=== PATIENT | female | born 1955 | race Two or more races ===

== ENCOUNTER 2016-10-31 15:13 | Inpatient (IN) | payer MEDICAID ==
[~2016-10-31] VITALS: Ht 160 cm; Wt 68.6 kg
[2016-10-31 17:08] LABS: Basophils # (auto) 0 uL; Basophils % (auto) 0.3 % (0.0-2.0); Eosinophils # (auto) 0.1 uL; Eosinophils % (auto) 0.8 % (0.0-7.0); Hematocrit 30.5 % (36.0-46.0); Hemoglobin 9.8 g/dL (12.2-16.2); Lymphocytes % (auto) 12.8 % (10.0-50.0); Mean Corpuscular Hemoglobin 29.2 pg (28.0-32.0); Mean Corpuscular Hgb Conc. 32.2 g/dL (32.0-36.0); Mean Corpuscular Volume 90.7 fL (80.0-100.0); Mean Platelet Volume 9.7 fL (7.4-10.4); Monocytes # (auto) 0.5 uL; Monocytes % (auto) 5.7 % (0.0-12.0); Neutrophils # (auto) 6.6 uL; Neutrophils % (auto) 80.4 % (37.0-80.0); Platelet Count (auto) 309 10^3/uL (140-450); Red Cell Distribution Width 13.9 % (11.6-16.0); White Blood Cell 8.2 10^3/uL (4.4-10.8)
[2016-10-31 17:38] LABS: Albumin 2.3 g/dL (3.4-5.0); BUN/Creatinine Ratio 24.8; Calcium 8.3 mg/dL (8.5-10.1); Potassium 4.1 mmol/L (3.5-5.1)
[2016-10-31 17:41] LABS: Bilirubin, Total 0.2 mg/dL (0.2-1.0); Total Protein 6.8 g/dL (6.4-8.2)
[2016-10-31] MEDS ORDERED: SODIUM CHLORIDE 0.9% 1,000 ML IVB ONE (19:25)
[2016-10-31] MEDS ORDERED: PROCHLORPERAZINE EDISYLATE 5 MG/ML 2ML VIAL IV ONE (19:30)
[2016-10-31 20:16] LABS: Urine Bilirubin Negative (Negative); Urine Blood Negative /uL (Negative); Urine Color Yellow (Yellow); Urine Glucose Normal (Normal); Urine Ketone Negative (Negative); Urine Nitrite Negative (Negative); Urine RBC 12 /hpf (0 - 4); Urine Squamous Epithelial Cell FEW /hpf (<5); Urine Urobilinogen Normal (Negative); Urine pH 5.5 (5.0-8.0)
[2016-10-31] MEDS ORDERED: SODIUM CHLORIDE 0.9% 1,000 ML IV SCH (21:52)
[2016-10-31] MEDS ORDERED: TEMAZEPAM 15 MG CAP PO PRN (22:00)
[2016-10-31] MEDS ORDERED: cefTRIAXone 1GM/50ML D5W 50 ML IV ONE (22:00)
[2016-10-31] MEDS ORDERED: ACETAMINOPHEN 325 MG TAB PO PRN (22:00)
[2016-10-31] MEDS ORDERED: MORPHINE SULF INJ 2 MG/ML SYRINGE 1ML IV PRN (22:00)
[2016-10-31] MEDS ORDERED: NITROGLYCERIN 0.4 MG SL TAB SL PRN (22:00)
[2016-10-31] MEDS ORDERED: ONDANSETRON HCL 4 MG/2 ML VIAL IV PRN (22:00)
[2016-10-31] MEDS ORDERED: HYDROcodone-ACET 5/325MG TAB PO PRN (22:00)
[2016-10-31] MEDS ORDERED: PANTOPRAZOLE SODIUM 40 MG/10 ML VIAL IV ONE (22:00)
[2016-10-31] MEDS ORDERED: DEXTROSE (50%) 50ML SYRG IV PRN (22:00)
[2016-10-31] MEDS: ENOXAPARIN SOD 30 MG/0.3 ML SYRINGE SC SCH (23:15)
[2016-10-31 23:30] VITALS: BP 130/58
[2016-10-31] MEDS: ACCU-CHEK COMFORT CURVE STRIP VI SCH (23:43)
[2016-10-31] MEDS: InsuLIN REG 1unit/0.01ml Soln (100units/ml) SC SCH (23:43)
[2016-11-01] MEDS ORDERED: ONDA8TAB6 PO (00:18)
[2016-11-01] MEDS ORDERED: SITA100T7 PO (00:18)
[2016-11-01] MEDS ORDERED: METF-316 PO (00:18)
[2016-11-01] MEDS ORDERED: SULF400T11 PO (00:18)
[2016-11-01 05:04] VITALS: BP 111/61
[2016-11-01] MEDS: InsuLIN REG 1unit/0.01ml Soln (100units/ml) SC SCH ×4 (05:48→21:36)
[2016-11-01] MEDS: ACCU-CHEK COMFORT CURVE STRIP VI SCH ×3 (05:48→17:26)
[2016-11-01 06:35] LABS: Basophils # (auto) 0 uL; Basophils % (auto) 0.3 % (0.0-2.0); Eosinophils # (auto) 0.1 uL; Eosinophils % (auto) 1.1 % (0.0-7.0); Hematocrit 28.7 % (36.0-46.0); Lymphocytes # (auto) 1.5 uL; Mean Corpuscular Hemoglobin 28.6 pg (28.0-32.0); Mean Corpuscular Hgb Conc. 31.3 g/dL (32.0-36.0); Mean Corpuscular Volume 91.4 fL (80.0-100.0); Mean Platelet Volume 9.4 fL (7.4-10.4); Monocytes # (auto) 0.7 uL; Neutrophils # (auto) 6.5 uL; Neutrophils % (auto) 73.6 % (37.0-80.0); Platelet Count (auto) 299 10^3/uL (140-450); White Blood Cell 8.9 10^3/uL (4.4-10.8)
[2016-11-01 06:47] LABS: Albumin 2.2 g/dL (3.4-5.0); BUN/Creatinine Ratio 25.4; Bilirubin, Total 0.2 mg/dL (0.2-1.0); Potassium 4.2 mmol/L (3.5-5.1); Total Protein 6.2 g/dL (6.4-8.2)
[2016-11-01] MEDS: cefTRIAXone 1GM/50ML D5W 50 ML IV SCH (09:13)
[2016-11-01] MEDS: ASPirin 81 mg TAB PO SCH (09:13)
[2016-11-01] MEDS: PANTOPRAZOLE SODIUM 40 MG/10 ML VIAL IV SCH (09:13)
[2016-11-01 09:24] VITALS: BP 115/65
[2016-11-01 13:07] VITALS: BP 130/70
[2016-11-01] MEDS ORDERED: SODIUM CHLORIDE 0.9% 1,000 ML IVB ONE (14:30)
[2016-11-01] MEDS: SODIUM CHLORIDE 0.9% 1,000 ML IV SCH (14:44)
[2016-11-01 16:53] VITALS: BP 135/72
[2016-11-01 17:16] LABS: Temperature: 22.4 C (20.0-25.0)
[2016-11-01] MEDS: ENOXAPARIN SOD 30 MG/0.3 ML SYRINGE SC SCH (19:42)
[2016-11-01 21:44] VITALS: BP 139/68
[2016-11-01] MEDS ORDERED: SODIUM CHLORIDE 0.9% 1,000 ML IV SCH (21:52)
[2016-11-02] MEDS: SODIUM CHLORIDE 0.9% 1,000 ML IV SCH (03:50)
[2016-11-02 05:31] VITALS: BP 126/72
[2016-11-02] MEDS: InsuLIN REG 1unit/0.01ml Soln (100units/ml) SC SCH ×2 (06:12→12:19)
[2016-11-02] MEDS: ACCU-CHEK COMFORT CURVE STRIP VI SCH ×3 (06:25→12:19)
[2016-11-02 06:33] LABS: Basophils # (auto) 0 uL; Basophils % (auto) 0.3 % (0.0-2.0); Eosinophils # (auto) 0.1 uL; Eosinophils % (auto) 1.5 % (0.0-7.0); Hematocrit 27.3 % (36.0-46.0); Hemoglobin 8.8 g/dL (12.2-16.2); Lymphocytes # (auto) 1.7 uL; Lymphocytes % (auto) 18.7 % (10.0-50.0); Mean Corpuscular Hemoglobin 29.2 pg (28.0-32.0); Mean Corpuscular Hgb Conc. 32.1 g/dL (32.0-36.0); Monocytes # (auto) 0.8 uL; Monocytes % (auto) 9.3 % (0.0-12.0); Neutrophils # (auto) 6.2 uL; Neutrophils % (auto) 70.2 % (37.0-80.0); Platelet Count (auto) 367 10^3/uL (140-450); Red Cell Distribution Width 14.3 % (11.6-16.0); White Blood Cell 8.8 10^3/uL (4.4-10.8)
[2016-11-02 08:00] VITALS: BP 136/73
[2016-11-02 08:32] LABS: BUN/Creatinine Ratio 17.8; Calcium 8.3 mg/dL (8.5-10.1); Magnesium 2.5 mg/dL (1.6-2.6); Potassium 4.4 mmol/L (3.5-5.1)
[2016-11-02] MEDS: cefTRIAXone 1GM/50ML D5W 50 ML IV SCH (08:55)
[2016-11-02 09:00] VITALS: BP 136/73
[2016-11-02] MEDS: PANTOPRAZOLE SODIUM 40 MG/10 ML VIAL IV SCH (09:36)
[2016-11-02] MEDS: ASPirin 81 mg TAB PO SCH (09:36)
[2016-11-02 13:00] VITALS: BP 132/69
[2016-11-02] MEDS ORDERED: CIPR-217 PO (13:01)
[2016-11-02 14:19] VITALS: BP 136/73
[2016-11-03] MEDS ORDERED: ENOXAPARIN SOD 40 MG/0.4 ML SYRINGE SC SCH (10:00)
== END 2016-11-02 15:15 | disposition home or self-care (01) | DRG 203 ==
LOC: ER 15:28 → TELE 15:29 → TELE-WESTW 23:16
PROVIDERS: ADMIT Nurse Practitioner; ATTEND Internal Medicine
DX: R07.89 Other chest pain (principal); N17.0 Acute kidney failure with tubular necrosis; E43 Unspecified severe protein-calorie malnutrition; E11.21 Type 2 diabetes mellitus with diabetic nephropathy; E86.0 Dehydration; N39.0 Urinary tract infection, site not specified; E11.65 Type 2 diabetes mellitus with hyperglycemia; D64.9 Anemia, unspecified; D25.9 Leiomyoma of uterus, unspecified; D63.8 Anemia in other chronic diseases classified elsewhere; G43.A0 Cyclical vomiting, in migraine, not intractable; E11.319 Type 2 diabetes mellitus with unspecified diabetic retinopathy without macular edema; N18.9 Chronic kidney disease, unspecified; Z83.3 Family history of diabetes mellitus; Z68.26 Body mass index [BMI] 26.0-26.9, adult; E11.36 Type 2 diabetes mellitus with diabetic cataract; Z98.42 Cataract extraction status, left eye; Z98.41 Cataract extraction status, right eye
CPT/HCPCS: 36415; 71010; 74176; 76775; 80048; 80053; 81001; 82043; 82607; 82746; 82962; 83036; 83540; 83550; 83735; 84484; 85025; 86803; 87086; 87340; 93005; 93306; 94761; 96361; 96374; 96375; C9113; J0696; J1815

== ENCOUNTER 2017-06-07 09:43 | Inpatient (IN) | payer MEDICAID ==
[~2017-06-07] VITALS: Ht 160 cm; Wt 71.4 kg
[~2017-06-07 09:43] MED LIST: CIPR-217 PO; METF-372 PO; ONDA8TAB6 PO; SITA100T7 PO
[2017-06-07 10:36] LABS: Urine Bilirubin Negative (Negative); Urine Blood Negative /uL (Negative); Urine Color Yellow (Yellow); Urine Glucose Normal (Normal); Urine Hyaline Cast FEW /lpf (0 - 2); Urine Ketone Negative (Negative); Urine Mucus FEW (None Seen); Urine Nitrite Negative (Negative); Urine RBC 1 /hpf (0 - 4); Urine Urobilinogen Normal (Negative)
[2017-06-07 10:36] LABS: Basophils # (auto) 0.1 uL; Basophils % (auto) 1.2 % (0.0-2.0); Eosinophils # (auto) 0.2 uL; Eosinophils % (auto) 2.7 % (0.0-7.0); Hematocrit 31.1 % (36.0-46.0); Hemoglobin 10.5 g/dL (12.2-16.2); Lymphocytes # (auto) 1.5 uL; Lymphocytes % (auto) 22.6 % (10.0-50.0); Mean Corpuscular Hemoglobin 31.2 pg (28.0-32.0); Mean Corpuscular Hgb Conc. 33.8 g/dL (32.0-36.0); Mean Corpuscular Volume 92.3 fL (80.0-100.0); Mean Platelet Volume 9.7 fL (7.4-10.4); Monocytes # (auto) 0.4 uL; Monocytes % (auto) 6.9 % (0.0-12.0); Neutrophils # (auto) 4.4 uL; Neutrophils % (auto) 66.6 % (37.0-80.0); Platelet Count (auto) 211 10^3/uL (140-450); Red Cell Distribution Width 13.8 % (11.6-16.0); White Blood Cell 6.5 10^3/uL (4.4-10.8)
[2017-06-07 11:22] LABS: Albumin 3.5 g/dL (3.4-5.0); Bilirubin, Total 0.2 mg/dL (0.2-1.0); Calcium 9.2 mg/dL (8.5-10.1); Potassium 5.1 mmol/L (3.5-5.1); Total Protein 7.4 g/dL (6.4-8.2)
[2017-06-07] MEDS ORDERED: SODIUM CHLORIDE 0.9% 1,000 ML IV ONE (16:43)
[2017-06-07] MEDS ORDERED: LABETALOL HCL 5 MG/ML ML 20ML VIAL IV ONE (18:00)
[2017-06-07] MEDS ORDERED: NITROGLYCERIN 0.4 MG SL TAB SL PRN (18:15)
[2017-06-07] MEDS ORDERED: ACETAMINOPHEN 500 MG TAB PO PRN (18:15)
[2017-06-07] MEDS ORDERED: MORPHINE SULF INJ 2 MG/ML SYRINGE 1ML IV PRN ×2 (18:15)
[2017-06-07] MEDS ORDERED: PROMETHAZINE HCL 25 MG/ML 1ML IV PRN (18:15)
[2017-06-07] MEDS ORDERED: TEMAZEPAM 15 MG CAP PO PRN (18:15)
[2017-06-07] MEDS ORDERED: LORazepam 0.5 MG TAB PO PRN (18:15)
[2017-06-07] MEDS ORDERED: HYDROcodone-ACET 5/325MG TAB PO PRN (18:15)
[2017-06-07] MEDS ORDERED: DEXTROSE (50%) 50ML SYRG IV PRN (18:15)
[2017-06-07] MEDS ORDERED: PANTOPRAZOLE 40 MG TAB PO ONE (19:15)
[2017-06-07] MEDS ORDERED: ASPirin 81 mg TAB PO ONE (19:15)
[2017-06-07 19:20] LABS: Temperature: 23.5 C (20.0-25.0)
[2017-06-07 19:30] VITALS: BP 173/77
[2017-06-07 19:35] VITALS: BP 152/82
[2017-06-07] MEDS ORDERED: LABETALOL HCL 5 MG/ML ML 20ML VIAL IV PRN ×2 (19:45)
[2017-06-07] MEDS ORDERED: LEVO25TA6 PO (20:30)
[2017-06-07] MEDS ORDERED: CLON0.2D6 PO (20:30)
[2017-06-07] MEDS ORDERED: FER325T PO (20:30)
[2017-06-07] MEDS ORDERED: ASPI-231 PO (20:30)
[2017-06-07] MEDS ORDERED: SODI15SU PO (20:30)
[2017-06-07] MEDS: SODIUM CHLOR 0.9% PF (SALINE LOCK) 10ML VIAL IV SCH (21:19)
[2017-06-07] MEDS: ISOSORBIDE DINITRATE 10 MG TAB PO SCH (21:19)
[2017-06-07] MEDS: ATORVASTATIN 20 MG TAB PO SCH (21:20)
[2017-06-07] MEDS: ACCU-CHEK COMFORT CURVE STRIP VI SCH (21:29)
[2017-06-07] MEDS: InsuLIN REG 1unit/0.01ml Soln (100units/ml) SC SCH (21:30)
[2017-06-07 21:45] VITALS: BP 152/85
[2017-06-07] MEDS ORDERED: ENALAPRIL MALEATE 2.5 MG TAB PO SCH (22:00)
[2017-06-08 04:49] VITALS: BP 144/70
[2017-06-08] MEDS: ISOSORBIDE DINITRATE 10 MG TAB PO SCH (06:18)
[2017-06-08] MEDS: ACCU-CHEK COMFORT CURVE STRIP VI SCH ×4 (06:18→22:14)
[2017-06-08] MEDS: SODIUM CHLOR 0.9% PF (SALINE LOCK) 10ML VIAL IV SCH ×2 (06:19→13:57)
[2017-06-08] MEDS: InsuLIN REG 1unit/0.01ml Soln (100units/ml) SC SCH ×3 (06:19→17:00)
[2017-06-08 06:20] LABS: Basophils # (auto) 0.1 uL; Eosinophils # (auto) 0.2 uL; Eosinophils % (auto) 2.8 % (0.0-7.0); Hematocrit 28.3 % (36.0-46.0); Hemoglobin 9.6 g/dL (12.2-16.2); Lymphocytes # (auto) 1.9 uL; Lymphocytes % (auto) 31.6 % (10.0-50.0); Mean Corpuscular Hemoglobin 31.2 pg (28.0-32.0); Mean Corpuscular Hgb Conc. 33.9 g/dL (32.0-36.0); Mean Corpuscular Volume 92.2 fL (80.0-100.0); Mean Platelet Volume 9.7 fL (6.9-10.8); Monocytes # (auto) 0.5 uL; Monocytes % (auto) 7.7 % (0.0-12.0); Neutrophils # (auto) 3.4 uL; Neutrophils % (auto) 56.9 % (37.0-80.0); Nucleated Red Blood Cells % 0.1 %; Platelet Count (auto) 190 10^3/uL (140-450); Red Cell Distribution Width 13.7 % (11.8-14.3)
[2017-06-08 06:36] LABS: INR 0.98 (0.9-1.15); Partial Thromboplastin Time 29.8 sec (22.64-33.71); Prothrombin Time 10.7 sec (9.37-12.3)
[2017-06-08 06:58] LABS: Albumin 3.2 g/dL (3.4-5.0); Alkaline Phosphatase 79 U/L (45-117); Anion Gap 8 (5-15); Aspartate Aminotransferase 13 U/L (15-37); BUN/Creatinine Ratio 20.3; Bilirubin, Total 0.4 mg/dL (0.2-1.0); Blood Urea Nitrogen 28 mg/dL (7-18); Calcium 8.3 mg/dL (8.5-10.1); Carbon Dioxide 24 mmol/L (21-32); Chloride 110 mmol/L (98-107); Cholesterol 156 mg/dL (< 200); GFR African American 50 mL/min; GFR Non-African American 41 mL/min; Glucose 184 mg/dL (74-106); HDL Cholesterol 56 mg/dL (40-59); LDL Cholesterol 97 mg/dL (< 100); Potassium 4.6 mmol/L (3.5-5.1); Sodium 142 mmol/L (136-145); Total Protein 6.8 g/dL (6.4-8.2); Triglycerides 83 mg/dL (< 150)
[2017-06-08 08:45] VITALS: BP 142/63
[2017-06-08] MEDS ORDERED: ENALAPRIL MALEATE 10 MG TAB PO SCH (10:00)
[2017-06-08] MEDS ORDERED: amLODIPine BESYLATE 5 MG TAB PO ONE (10:00)
[2017-06-08] MEDS: amLODIPine BESYLATE 5 MG TAB PO SCH (10:00)
[2017-06-08] MEDS: PANTOPRAZOLE 40 MG TAB PO SCH (10:17)
[2017-06-08] MEDS: ASPirin 81 mg TAB PO SCH (10:17)
[2017-06-08 16:55] VITALS: BP 154/78
[2017-06-08 20:00] VITALS: BP 146/70
[2017-06-08 22:00] VITALS: BP 146/70
[2017-06-09] MEDS: ATORVASTATIN 20 MG TAB PO SCH (01:06)
[2017-06-09] MEDS: SODIUM CHLOR 0.9% PF (SALINE LOCK) 10ML VIAL IV SCH ×2 (01:10→06:16)
[2017-06-09] MEDS: InsuLIN REG 1unit/0.01ml Soln (100units/ml) SC SCH ×3 (01:11→11:30)
[2017-06-09 05:00] VITALS: BP 126/70
[2017-06-09] MEDS: ACCU-CHEK COMFORT CURVE STRIP VI SCH ×2 (06:17→11:30)
[2017-06-09 06:49] LABS: Calcium 8.3 mg/dL (8.5-10.1); Potassium 4.3 mmol/L (3.5-5.1)
[2017-06-09 09:00] VITALS: BP 130/76
[2017-06-09] MEDS: ASPirin 81 mg TAB PO SCH (10:03)
[2017-06-09] MEDS: PANTOPRAZOLE 40 MG TAB PO SCH (10:03)
[2017-06-09] MEDS: amLODIPine BESYLATE 5 MG TAB PO SCH (10:05)
[2017-06-09 10:49] VITALS: BP 150/76
== END 2017-06-09 12:40 | disposition home or self-care (01) | DRG 470 ==
LOC: ER 09:43 → TELE 09:44 → TELE-CENTR 19:28
PROVIDERS: ADMIT Internal Medicine; ATTEND Internal Medicine
DX: I12.9 Hypertensive chronic kidney disease with stage 1 through stage 4 chronic kidney disease, or unspecified chronic kidney disease (principal); I67.4 Hypertensive encephalopathy; E11.21 Type 2 diabetes mellitus with diabetic nephropathy; E11.65 Type 2 diabetes mellitus with hyperglycemia; E87.5 Hyperkalemia; N18.3 Chronic kidney disease, stage 3 (moderate); E03.9 Hypothyroidism, unspecified; D63.8 Anemia in other chronic diseases classified elsewhere; E11.22 Type 2 diabetes mellitus with diabetic chronic kidney disease; Z83.3 Family history of diabetes mellitus; Z82.49 Family history of ischemic heart disease and other diseases of the circulatory system; Z87.440 Personal history of urinary (tract) infections; Z79.899 Other long term (current) drug therapy
CPT/HCPCS: 36415; 70450; 71020; 80048; 80053; 80061; 81001; 82550; 82607; 82746; 82962; 83036; 83735; 84443; 84484; 85025; 85379; 85610; 85652; 85730; 86141; 87081; 93005; 93306; 93886; 94761; 96361; 96374; J1815

== ENCOUNTER → 2024-09-27 | Outpatient (CLI) | payer OTHER, MEDICAID ==
[~2024-09-27] MED LIST changes: +ASPI1TAB20 PO; -CIPR-217 PO; +CLON0.2D6 PO; +FER325T PO; +LEVO25TA6 PO; -METF-372 PO; -ONDA8TAB6 PO; +SODI15SU PO
[2024-09-27 09:49] LABS: Urine Blood Negative /uL (Negative); Urine Clarity Turbid (Clear); Urine Color Colorless (Yellow); Urine Protein, UAD 3+ (Negative); Urine Specific Gravity 1.009 (1.001-1.035); Urine Urobilinogen Normal (Negative); Urine pH 8.5 (5.0-9.0)
[2024-09-27 11:49] LABS: Alanine Aminotransferase 25 U/L (7-40); Alkaline Phosphatase 114 U/L (46-116); Anion Gap 7 (5-15); Aspartate Aminotransferase 21 U/L (13-40); BUN/Creatinine Ratio 5.2 (10.0-20.0); Triglycerides 73 mg/dL (< 150)
[2024-09-27 11:50] LABS: Total Protein 7.5 g/dL (5.7-8.2)
[2024-09-27 12:00] LABS: Albumin 4.8 g/dL (3.2-4.8); Bilirubin, Total 0.2 mg/dL (0.2-1.0); Blood Urea Nitrogen 35 mg/dL (9-23); Calcium 10.5 mg/dL (8.7-10.4); Carbon Dioxide 31 mmol/L (20-31); Chloride 97 mmol/L (98-107); Cholesterol 210 mg/dL (< 200); Glucose 144 mg/dL (74-106); HDL Cholesterol 82 mg/dL (40-59); LDL Cholesterol 111 mg/dL (< 100); Potassium 5.5 mmol/L (3.5-5.1); Sodium 135 mmol/L (136-145)
== END | disposition home or self-care (01) ==
LOC: LAB 08:50
PROVIDERS: ATTEND Internal Medicine
DX: E11.22 Type 2 diabetes mellitus with diabetic chronic kidney disease (principal); N18.9 Chronic kidney disease, unspecified; Z79.899 Other long term (current) drug therapy
CPT/HCPCS: 80053; 80061; 81003; 82043; 82274; 82306; 82607; 84443

== ENCOUNTER → 2024-12-13 | Outpatient (CLI) | payer OTHER, MEDICAID ==
[~2024-12-13] MED LIST changes: +ALBUTEROL SULF 2.5 MG/0.5ML(0.5%) NEB SOLN ONE
--- NOTE | 2025-01-07 10:42 | DVHNC2 ---
Procedure - December 13, 2024 6 minute walk test interpretation No significant hypoxic events. Completed 6 minutes of ambulation. Expected heart rate achieved. Moderate reduction in distance walk. YOBANY QUINN RESIDENT Jan 07, 2025 10:42
--- NOTE | 2025-01-07 10:44 | DVHNC2 ---
Procedure - Pulmonary function test interpretation December 13, 2024 Moderate obstructive ventilatory defect. No significant bronchodilator response. FVC improved by 110 mL. Total lung capacity is reduced, 59% of predicted (2.71 L). Moderate reduction in diffusion capacity, 52% of predicted; not corrected for patient's hemoglobin. YOBANY QUINN RESIDENT Jan 07, 2025 10:44
== END | disposition home or self-care (01) ==
LOC: RT 09:28
PROVIDERS: ATTEND Internal Medicine Pulmonary Disease
DX: R06.00 Dyspnea, unspecified (principal); R05.3 Chronic cough
CPT/HCPCS: 94060; 94618; 94727; 94729

== ENCOUNTER → 2025-01-17 | Outpatient (CLI) | payer OTHER, MEDICAID ==
[~2025-01-17] MED LIST changes: -ALBUTEROL SULF 2.5 MG/0.5ML(0.5%) NEB SOLN ONE
[2025-01-17 11:46] LABS: Basophils # (auto) 0 10 ^3/uL (0-0.2); Basophils % (auto) 0.4 % (0.0-2.0); Eosinophils # (auto) 0.2 10 ^3/uL (0-0.8); Eosinophils % (auto) 2.9 % (0.0-7.0); Hematocrit 40.2 % (36.0-46.0); Hemoglobin 13.3 g/dL (12.2-16.2); Lymphocytes # (auto) 1.1 10 ^3/uL (0.4-5.4); Lymphocytes % (auto) 16.3 % (10.0-50.0); Mean Corpuscular Hgb Conc. 33.1 g/dL (32.0-36.0); Mean Corpuscular Volume 96.9 fL (80.0-100.0); Monocytes # (auto) 0.6 10 ^3/uL (0-1.3); Monocytes % (auto) 8.5 % (0.0-12.0); Neutrophils # (auto) 4.7 10 ^3/uL (1.6-8.6); Neutrophils % (auto) 71.9 % (37.0-80.0); Platelet Count (auto) 162 10^3/uL (140-450); Red Blood Cells 4.15 10^6/uL (4.0-5.20); Red Cell Distribution Width 15.6 % (11.8-14.3); White Blood Cell 6.5 10^3/uL (4.4-10.8)
[2025-01-17 12:01] LABS: Alanine Aminotransferase 25 U/L (7-40); Alkaline Phosphatase 108 U/L (46-116); Anion Gap 12 (5-15); BUN/Creatinine Ratio 8.5 (10.0-20.0); Carbon Dioxide 30 mmol/L (20-31); LDL Cholesterol 63 mg/dL (< 100); Potassium 4.7 mmol/L (3.5-5.1); Sodium 138 mmol/L (136-145); Total Protein 8.2 g/dL (5.7-8.2); Triglycerides 80 mg/dL (< 150)
[2025-01-17 12:02] LABS: Albumin 5.3 g/dL (3.2-4.8); Aspartate Aminotransferase 11 U/L (13-40); Bilirubin, Total 0.4 mg/dL (0.2-1.0); Blood Urea Nitrogen 52 mg/dL (9-23); Calcium 10.6 mg/dL (8.7-10.4); Chloride 96 mmol/L (98-107); Cholesterol 149 mg/dL (< 200); Glucose 136 mg/dL (74-106); HDL Cholesterol 63 mg/dL (40-59)
== END | disposition home or self-care (01) ==
LOC: LAB 10:55
PROVIDERS: ATTEND Specialist
DX: I10 Essential (primary) hypertension (principal); E78.5 Hyperlipidemia, unspecified; E03.9 Hypothyroidism, unspecified; D64.9 Anemia, unspecified; R73.09 Other abnormal glucose; R68.89 Other general symptoms and signs
CPT/HCPCS: 36415; 80053; 80061; 83036; 84443; 85025

== ENCOUNTER → 2025-04-02 | Outpatient (CLI) | payer OTHER, MEDICAID | END | disposition home or self-care (01) | LOC: LAB 10:52 | PROVIDERS: ATTEND Internal Medicine | DX: N39.0 Urinary tract infection, site not specified (principal); Z79.899 Other long term (current) drug therapy | CPT/HCPCS: 36415; 84443 ==

== ENCOUNTER 2025-04-09 12:27 | Outpatient (CLI) | payer OTHER, MEDICAID ==
[2025-04-09 12:40] LABS: Urine Protein, UAD 2+ (Negative)
[2025-04-09 12:52] LABS: Protein, Urine 308.0 mg/dL (1-14)
== END 2025-04-09 17:00 | disposition home or self-care (01) ==
LOC: LAB 12:27
PROVIDERS: ATTEND Internal Medicine
DX: N39.0 Urinary tract infection, site not specified (principal)
CPT/HCPCS: 81001; 82570; 84156

== ENCOUNTER → 2025-07-11 | Outpatient (CLI) | payer OTHER, MEDICAID ==
[2025-07-11 10:50] LABS: Hematocrit 39.0 % (36.0-46.0); Hemoglobin 12.7 g/dL (12.2-16.2); Mean Corpuscular Hemoglobin 30.6 pg (28.0-32.0); Mean Corpuscular Volume 94.1 fL (80.0-100.0); Nucleated Red Blood Cells % 0.1 %
[2025-07-11 11:10] LABS: Alanine Aminotransferase 19 U/L (7-40); Anion Gap 12 (5-15); BUN/Creatinine Ratio 6.0 (10.0-20.0); Calcium 10.1 mg/dL (8.7-10.4); Carbon Dioxide 31 mmol/L (20-31); Sodium 140 mmol/L (136-145); Triglycerides 95 mg/dL (< 150)
[2025-07-11 11:11] LABS: Total Protein 7.4 g/dL (5.7-8.2)
[2025-07-11 11:12] LABS: Albumin 4.5 g/dL (3.2-4.8)
[2025-07-11 11:13] LABS: Alkaline Phosphatase 129 U/L (46-116); Bilirubin, Direct < 0.1 mg/dL (<0.3); Bilirubin, Total 0.2 mg/dL (0.2-1.0); Blood Urea Nitrogen 39 mg/dL (9-23); Chloride 97 mmol/L (98-107); Cholesterol 218 mg/dL (< 200); Glucose 146 mg/dL (74-106); HDL Cholesterol 67 mg/dL (40-59); Potassium 5.2 mmol/L (3.5-5.1)
== END | disposition home or self-care (01) ==
LOC: LAB 09:54
PROVIDERS: ATTEND Specialist
DX: I11.0 Hypertensive heart disease with heart failure (principal); I50.9 Heart failure, unspecified; E78.5 Hyperlipidemia, unspecified; E11.9 Type 2 diabetes mellitus without complications; R68.89 Other general symptoms and signs; E03.9 Hypothyroidism, unspecified; D64.9 Anemia, unspecified
CPT/HCPCS: 36415; 80053; 80061; 82248; 83036; 84443; 85025